=== PATIENT | female | born 1970 | race Caucasian/White ===

== ENCOUNTER 2020-09-18 22:18 | Inpatient (IN) | payer OTHER, SELFPAY ==
[~2020-09-18 22:18] MED LIST: Iopamidol 370 76% 100 ML VIAL ONE
--- NOTE | 2020-09-18 22:52 | RAD ---
Chest AP view INDICATION: Chest pain COMPARISON: None FINDINGS: Lungs: There is airspace opacity in the region of the left lower lobe suspicious for pneumonia. Righ t lung is clear. Cardiac silhouette: The cardiomediastinal silhouette appears within normal limits. Pulmonary vasculature: Normal Pleural spaces: No pleural effusion or pneumothorax is demonstrated. Upper abdomen: No abnormality seen. Osseous structures: No acute osseous abnormality. Additional findings: Numerous surgical clips within the upper abdomen. IMPRESSION: Left lower lobe pneumonia. Recommend radiographic follow-up to resolution.
[2020-09-18 23:27] LABS: ALT (SGPT) 8 U/L (8-55); AST (SGOT) 16 U/L (5-34); Albumin 4.1 g/dL (3.5-5.0); Alkaline Phosphatase 99 U/L (40-110); Anion Gap 14 mmol/L (10-20); BUN (Urea Nitrogen) 4 mg/dL (7.0-18.7); Bilirubin, Total 0.6 mg/dL (0.2-1.2); CK (CPK) 76 U/L (29-168); Calc. Creatinine Clearance 0 mL/min (70-130); Calcium 9.2 mg/dL (7.8-10.44); Carbon Dioxide 24 mmol/L (22-29); Chloride 103 mmol/L (98-107); Estimated GFR-MDRD 86; Globulin 3.2 g/dL (2.4-3.5); Glucose 106 mg/dL (70-105); Lipase 41 U/L (8-78); Potassium 3.9 mmol/L (3.5-5.1); Protein, Total 7.3 g/dL (6.0-8.3); Sodium 137 mmol/L (136-145)
[2020-09-18 23:28] LABS: #Monocytes 0.7 thou/uL (0.11-0.59); #Neutrophils 4.8 thou/uL (1.40-6.50); %Basophils 0.4 % (0.0-1.0); %Eosinophils 0.3 % (0.0-10.0); %Lymphocytes 15.5 % (21.0-51.0); %Monocytes 10.6 % (0.0-10.0); %Neutrophils 73.2 % (42.0-75.0); Hemoglobin 8.1 g/dL (12.0-16.0); Mean Corpuscular HGB CONC 28.7 g/dL (32.0-36.0); Mean Corpuscular Hemoglobin 19.5 pg (27.0-31.0); Mean Corpuscular Volume 67.9 fL (78.0-98.0); Mean Platelet Volume 8.5 fL (7.4-10.4); Platelet Count 385 thou/uL (130-400); Red Blood Cell (RBC) Count 4.15 mill/uL (4.20-5.40); White Blood Cell (WBC) Count 6.5 thou/uL (4.8-10.8)
[2020-09-18 23:29] LABS: Hypochromia SLIGHT = 6-15 cells (100X) (0-5/hpf); MDiff Complete? YES; Microcytosis SLIGHT = 6-15 cells (100X) (0-5/hpf); Platelet Morphology Comment Appears Adequate
[2020-09-19] MEDS ORDERED: Enoxaparin Sodium 100 MG/ML SYRINGE ONE (00:23)
[2020-09-19] MEDS ORDERED: Enoxaparin Sodium 80 MG/0.8 ML SYRINGE ONE (00:23)
--- NOTE | 2020-09-19 00:32 | PDOC.FPRHP ---
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 Also complains of epigastric pain. Pain worsens with inspiration and laying on left side. Pain rated a 7/10, unchanged since onset. Took gas pill without improvement. Reports intermittent ankle edema associated with menstruation x 2 months but denies headache, lightheadedness, vision changes, chest pain, palpitations, SOB, and nausea. No history of DVTs or PEs in the past. Father has history of PE after knee surgery. Denies hx of smoking, recent travel, recent surgery, sedimentary lifestyle, OCPs and hx cancer. Most recent mammogram and pap smear within past 4 hours. Pap smear + HPV with colposcopy, no recent follow up. LMP 1 week ago. ED Course: Oxygen saturation > 95% in the ED. Vitals stable. EKG showed no ST segment changes. CTA showed bilateral pulmonary embolism, per verbal radiology report. Official read pending. 1mg/kg therapeutic lovenox administered. - Allergies/Adverse Reactions Allergies Allergy/AdvReac Type Severity Reaction Status Date / Time No Known Drug Allergies Allergy Unverified 09/19/20 01:08 - History PMHx: Post- ecclampsia, anemia 2/2 gastric bypass, ADD, palpitations, complex migraines PSHx: Gastric bypass, cholecystectomy FHx: Mother (d/c'ed in late 40s) - [place], familial hypertriglyceridemia. Father - PE s/p knee surgery Social: Never smoker. Drinks socially. No history of drug use. - Review of Systems General: denies: fever/chills, night sweats Eyes: denies: eye pain, vision changes ENT: denies: nasal congestion, rhinorrhea Respiratory: denies: cough, shortness of breath Cardiovascular: reports: chest pain (left sided). denies: palpitation, edema Gastrointestinal: reports: abdominal pain (epigastric pain). denies: nausea Genitourinary: denies: dysuria, polyuria Skin: denies: rashes, jaundice Musculoskeletal: denies: pain, swelling Neurological: denies: numbness, weakness Psychological: denies: anxiety, depression - Vital signs BP: [144/80] HR: [87] RR: [18] Tmax: [98F] Pox: [96]% on [RA] Wt: [77.08kg] - Physical Exam Constitutional: NAD, awake, alert and oriented HEENT: normocephalic and atraumatic, no scleral icterus, MMM Neck: FROM, trachea midline Chest: no lesions -Chest: Left sided chest tenderness to palpation Heart: RRR, normal S1/S2, pulses present, no edema Lungs: CTAB, no respiratory distress, good air movement Abdomen: soft, non-tender, bowel sounds present Musculoskeletal: normal structure, ROM grossly normal Neurological: no focal deficit, normal sensation Skin: no rash/lesions, no jaundice Heme/Lymphatic: no unusual bruising or bleeding Psychiatric: normal mood and affect FMR H&P: Results - Labs Result Diagrams: 09/18/20 22:50 09/18/20 22:50 Lab results: WBC 6.5 thou/uL (4.8-10.8) 09/18/20 22:50 Hgb 8.1 g/dL (12.0-16.0) L 09/18/20 22:50 Hct 28.2 % (36.0-47.0) L 09/18/20 22:50 MCV 67.9 fL (78.0-98.0) L 09/18/20 22:50 Plt Count 385 thou/uL (130-400) 09/18/20 22:50 Neutrophils % 73.2 % (42.0-75.0) 09/18/20 22:50 Sodium 137 mmol/L (136-145) 09/18/20 22:50 Potassium 3.9 mmol/L (3.5-5.1) 09/18/20 22:50 Chloride 103 mmol/L (98-107) 09/18/20 22:50 Carbon Dioxide 24 mmol/L (22-29) 09/18/20 22:50 BUN 4 mg/dL (7.0-18.7) L 09/18/20 22:50 Creatinine 0.72 mg/dL (0.6-1.1) 09/18/20 22:50 Glucose 106 mg/dL (70-105) H 09/18/20 22:50 Calcium 9.2 mg/dL (7.8-10.44) 09/18/20 22:50 Total Bilirubin 0.6 mg/dL (0.2-1.2) 09/18/20 22:50 AST 16 U/L (5-34) 09/18/20 22:50 ALT 8 U/L (8-55) 09/18/20 22:50 Alkaline Phosphatase 99 U/L (40-110) 09/18/20 22:50 Creatine Kinase 76 U/L (29-168) 09/18/20 22:50 Serum Total Protein 7.3 g/dL (6.0-8.3) 09/18/20 22:50 Albumin 4.1 g/dL (3.5-5.0) 09/18/20 22:50 Lipase 41 U/L (8-78) 09/18/20 22:50 - EKG Interpretation EKG: NSR at 83, no ST segment changes - Radiology Interpretation Chest x-ray Status: report reviewed by me Additional comment: Opacity concerning for LLL pneumonia FMR H&P: A/P - Plan Bilateral pulmonary embolism Per verbal radiology report, CTA Chest shows bilateral PE. official read pending. Patient received therapeutic lovenox in ED. No cause identified for PE. Vitals stable. -Admit to tele inpatient -1 mg/kg lovenox BID -Bilateral LE doppler - test -Trend trop x 3. Initial < 0.10. -Hypercoagulability panel not indicated given lack of familial or personal history of DVTs, age -CM for coordination of care given need for continued anti-coagulation in setting of no insurance -F/u outpatient with cancer screenings Microcytic anemia 2/2 gastric bypass Hgb 8.1, MCV 67. Previously took iron supplementation but stopped 2 years ago. -Iron studies in am Complex migraines ADD -Aware PCP: [facility] in [place] Code: FULL DVT ppx: Therapeutic lovenox Dispo: Admit to tele inpatient, expected LOS 24-48 hours FMR H&P: Upper Level - Plan Date/Time: 09/19/20 0030 Rachel Pollock, have evaluated this patient and agree with findings/plan as outlined by recording studio intern resident. Pertinent changes/additions are listed here. 50 yo F with no significant PMH is admitted for PE found in the ED. She reports a one day history of worsening L rib, shoulder, neck pain. Pain is worse with inspiration and palpation. No cough, SOB, fever, chills. Last pap smear about 4 years ago, was HPV positive, had a colpo, she thinks this was normal but was unable to have scheduled follow up due to pandemic. Normal mammogram within past 4 years. PE: Gen: NAD HEENT: Moist MM, no LAD Heart: RRR, no murmurs or extra sounds. Distal pulses 2+ Lungs: CTAB, no wheezing. No increased work of breathing Abd: soft, nontender, BS+, no masses or hernias Ext: no cyanosis or edema Skin: no rashes Psych: AOx3 CTA read pending, per report bilateral PE Pulmonary Embolus - VSS, continue to monitor on telemetry - Therapeutic lovenox in ED, continue for now. Transition to DOAC prior to discharge would be ideal, however she is uninsured. Consult CM for medication assistance - No identifiable cause. No known familial history, no trauma, recent surgery or immobilization. She is not obese, nonsmoker. Not on hormonal medication. No hx recurrent miscarriage. - pending BLE dopplers - Recommend outpatient follow up for updated cancer screenings, will be more difficult since uninsured. - No further testing or hypercoagulable workup is indicated at this time due to age >45, lack of family history , and this being first occurrence PCP: Lindsay Attending: Dispo: admit to telemetry, inpatient
[2020-09-19] MEDS ORDERED: Ondansetron PF 4 MG/2 ML Vial IVP PRN (00:59)
[2020-09-19] MEDS ORDERED: Ondansetron ODT 4 MG TAB PO PRN (00:59)
[2020-09-19 01:50] VITALS: BMI 28.3
[2020-09-19 01:50] LABS: #Lymphocytes 1.3 thou/uL (1.20-3.40); #Monocytes 0.8 thou/uL (0.11-0.59); #Neutrophils 5.1 thou/uL (1.40-6.50); %Basophils 0.1 % (0.0-1.0); %Eosinophils 0.2 % (0.0-10.0); %Lymphocytes 17.8 % (21.0-51.0); %Monocytes 10.7 % (0.0-10.0); %Neutrophils 71.2 % (42.0-75.0); Hemoglobin 7.5 g/dL (12.0-16.0); Mean Corpuscular HGB CONC 30.2 g/dL (32.0-36.0); Mean Corpuscular Hemoglobin 20.2 pg (27.0-31.0); Mean Corpuscular Volume 66.9 fL (78.0-98.0); Platelet Count 338 thou/uL (130-400); RBC Distribution Width 15.9 % (11.5-14.5); White Blood Cell (WBC) Count 7.1 thou/uL (4.8-10.8)
[2020-09-19 02:42] LABS: Troponin I Less than 0.010 ng/mL (< 0.028)
[2020-09-19 02:54] LABS: Anion Gap 16 mmol/L (10-20); BUN (Urea Nitrogen) 5 mg/dL (7.0-18.7); Calc. Creatinine Clearance 121 mL/min (70-130); Calcium 9.2 mg/dL (7.8-10.44); Carbon Dioxide 20 mmol/L (22-29); Chloride 103 mmol/L (98-107); Estimated GFR-MDRD Greater than 90; Glucose 100 mg/dL (70-105); Iron 15 ug/dL (50-170); Iron Binding Capacity, Total 425 mcg/dL (265-497); Potassium 3.7 mmol/L (3.5-5.1); Sodium 135 mmol/L (136-145)
[2020-09-19 04:39] LABS: Troponin I Less than 0.010 ng/mL (< 0.028)
--- NOTE | 2020-09-19 07:12 | CT ---
CTA OF THORAX UTILIZING IV CONTRAST WITH PE PROTOCOL AND 3D REFORMATTED IMAGING: Date: 09/18/2020 HISTORY: Left sided chest pain COMPARISON: Prior chest radiograph dated 09/18/2020. FINDINGS: There are areas of occlusive thrombi seen within the left lower lobar pulmonary artery with occlusive thrombus seen within segmental branches of the anterolateral, posterolateral, and posterior medial l eft lower lobe. There is prominent air space opacity in the left lower lobe suspicious for pulmonary hemorrhage and infarct. There is a reactive small left pleural effusion. There is a nonocclusive pulm onary embolus seen at the bifurcation point of the right lower lobe lobar pulmonary artery on image 5 7 of series 2 extending into the segmental branches of the posteromedial and anterolateral right lowe r lobe. No lymphadenopathy is evident. Heart and great vessels of the neck origins are within normal limits. Visualized upper abdomen reveals postsurgical change of a gastric bypass and cholecystectomy. No definite acute osseous abnormality is evident. IMPRESSION: 1. Occlusive thrombus involving segmental pulmonary arterial branches of the left lower lobe with pr ominent air space opacity in the left lower lobe suspicious for pulmonary infarction and hemorrhage. There is reactive small left pleural effusion. 2. Nonocclusive pulmonary embolus within the right lower lobe. Findings called to Dr. Cosby at 0030 hours on 09/19/2020. CODE CR. POS: BH
--- NOTE | 2020-09-19 09:23 | ULT ---
BILATERAL LOWER EXTREMITY VENOUS ULTRASOUND WITH DOPPLER: HISTORY: The patient does have bilateral pulmonary artery emboli. COMPARISON: None. TECHNIQUE: Fu scale, color flow, Doppler imaging, and spectral waveform analysis of the left and right lower e xtremity system. FINDINGS: Bilaterally, there is compressibility, presence of flow, and augmentation of the common femoral vein, femoral vein, and popliteal vein. There is flow in the greater saphenous vein, profunda femoral vei n, and posterior tibial vein. IMPRESSION: No evidence of thrombus in the left or right lower extremity deep venous system. POS: OFF
[2020-09-19] MEDS ORDERED: Ibuprofen 100 MG/5 ML UDCUP PO PRN (09:36)
[2020-09-19 11:19] LABS: SARS-CoV-2 MS2 Positive; SARS-CoV-2 N Gene Negative; SARS-CoV-2 S Gene Negative; SARS-CoV-2 by NAA Not Detected (NotDetected); SARS-CoV-2 orf1ab Negative
[2020-09-19] MEDS: Enoxaparin Sodium 80 MG/0.8 ML SYRINGE SC SCH ×2 (11:33→23:30)
[2020-09-19] MEDS: Acetaminophen 325 MG TAB PO PRN (20:26)
[2020-09-19] MEDS ORDERED: FLU VACC QS2020-21(6MOS UP)/PF 60 MCG/0.5 ML SYRINGE IM ONE (21:00)
[2020-09-19] MEDS ORDERED: Prevnar 13-Val Conj/PF 0.5 ML SYRINGE IM ONE (21:00)
[2020-09-20 04:22] LABS: #Lymphocytes 1.7 thou/uL (1.20-3.40); #Neutrophils 5.9 thou/uL (1.40-6.50); %Basophils 0.1 % (0.0-1.0); %Eosinophils 0.5 % (0.0-10.0); %Lymphocytes 20.1 % (21.0-51.0); %Monocytes 11.5 % (0.0-10.0); %Neutrophils 67.8 % (42.0-75.0); Mean Corpuscular HGB CONC 29.5 g/dL (32.0-36.0); Mean Corpuscular Volume 67.9 fL (78.0-98.0); Mean Platelet Volume 9.2 fL (7.4-10.4); Platelet Count 362 thou/uL (130-400); RBC Distribution Width 16.2 % (11.5-14.5); White Blood Cell (WBC) Count 8.6 thou/uL (4.8-10.8)
[2020-09-20 04:38] LABS: Anion Gap 13 mmol/L (10-20); BUN (Urea Nitrogen) 7 mg/dL (7.0-18.7); Calc. Creatinine Clearance 124 mL/min (70-130); Calcium 9.3 mg/dL (7.8-10.44); Carbon Dioxide 24 mmol/L (22-29); Chloride 104 mmol/L (98-107); Estimated GFR-MDRD Greater than 90; Glucose 94 mg/dL (70-105); Potassium 3.5 mmol/L (3.5-5.1); Sodium 137 mmol/L (136-145)
--- NOTE | 2020-09-20 06:10 | PDOC.FM ---
- Subjective Subjective: Mrs. Prabhakar is doing well this morning and has no complaints. She states her CP has improved and is now a 3/10. It is not constant like it was initially, and she really only notices it on deep inspiration. She denies SOB or any new sxs. I discussed the risk of frequent Ibuprofen use in pts with a hx of bypass, which she had not been aware of. She has agreed to use Ibuprofen very judiciously. We also talked about how it's possible for cancer to be the cause of otherwise unexplained PEs and how she is at the age where we would recommend mammography and colonoscopy anyway, so we discussed the importance of her getting those screenings. I provided her with our clinic number and information on how to ask about the CPRIT program and she is agreeable to following through with this. She also mentioned she had COVID in early May and was asking if this could be the cause of her PEs. Lastly, we discussed needing to send her home on anticoagulation. She is uninsured but states finances are not an issue and she will contact her local pharmacy to see how much 3 months' worth of Eliquis would cost. CM is also looking into getting her a free month on discharge. - Objective Vital Signs & Weight: Vital Signs (12 hours) Temp Pulse Resp BP Pulse Ox 09/20/20 04:00 98.0 F 75 17 140/83 99 09/19/20 23:31 98.1 F 82 17 136/73 97 09/19/20 20:30 99 09/19/20 20:20 99.1 F 98 18 134/73 99 Weight Weight 72.121 kg I&O: 09/18/20 09/19/20 09/20/20 06:59 06:59 06:59 Intake Total 240 870 Output Total 700 Balance 240 170 Result Diagrams: 09/20/20 03:50 09/20/20 03:50 Phys Exam - Physical Examination Constitutional: NAD Alert, awake, sitting up in bed, talking animatedly Neck: supple, full ROM Respiratory: no wheezing, no rales, clear to auscultation bilateral Cardiovascular: RRR, no significant murmur Neurological: non-focal, moves all 4 limbs Psychiatric: normal affect, A&O x 3 Skin: no rash Dx/Plan - Plan Plan: Bilateral pulmonary embolism - CTA Chest shows bilateral PE - Bilateral LE doppler neg - Hypercoagulability panel not indicated given lack of familial or personal history of DVTs, age - Patient has received therapeutic lovenox - CM for coordination of care given need for continued anti-coagulation in setting of no insurance - F/u outpatient with cancer screenings Microcytic 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 I have recommended she restart them and she is agreeable. Complex migraines ADD -Aware PCP: [facility] in [place] Code: FULL DVT ppx: Therapeutic lovenox Dispo: Admit to tele inpatient, discharge pending coordination of outpt anticoag, will likely go today.
[2020-09-20] MEDS ORDERED: Ferrous Sulfate 325 MG TAB PO SCH (08:00)
[2020-09-20] MEDS ORDERED: Prevnar 13-Val Conj/PF 0.5 ML SYRINGE IM ONE (09:00)
[2020-09-20] MEDS ORDERED: FLU VACC QS2020-21(6MOS UP)/PF 60 MCG/0.5 ML SYRINGE IM ONE (09:00)
[2020-09-20] MEDS: Acetaminophen 325 MG TAB PO PRN (10:52)
[2020-09-20] MEDS: Enoxaparin Sodium 80 MG/0.8 ML SYRINGE SC SCH (10:52)
[2020-09-20 16:57] VITALS: BP 126/64; TEMP 98.9
--- NOTE | 2020-09-21 02:54 | DIS ---
DATE OF ADMISSION: 09/19/2020 DATE OF DISCHARGE: 09/20/2020 RESIDENT: Tona Cuellar MD. ADMITTING/ATTENDING: Dr. Peter Richardson. DISCHARGE ATTENDING: Dr. Robert Gallo. CONSULTS: None. PROCEDURES: None. PRIMARY DIAGNOSIS: 1. Bilateral pulmonary embolism. 2. Microcytic anemia secondary to gastric bypass. SECONDARY DIAGNOSES: 1. Complex migraines. 2. Attention deficit disorder. DISCHARGE MEDICATIONS: New medications: 1. Eliquis 5 mg p.o. b.i.d. 2. Ferrous sulfate 325 mg p.o. q.a.m. WM. Continued medications: 1. Vyvanse 70 mg p.o. q.a.m. 2. Adderall extended release 30 mg p.o. daily. Discontinued medications: None. HISTORY OF PRESENT ILLNESS/HOSPITAL COURSE: This is a 50-year-old female, who presented to the ED with complaints of left-sided chest pain radiating to the left shoulder and neck for 2 days, as well as epigastric pain. The pain worsened with inspiration and lying on her left side and was not resolved by taking a gas pill. She has no history of smoking, recent travel, recent surgery, sedentary lifestyle, OCP use, history of cancer. CTA of the chest showed bilateral PE, so she received therapeutic Lovenox. Bilateral lower extremity Dopplers were negative. A hypercoagulability panel was not indicated given lack of familial or personal history of DVTs as well as age. Case Management was consulted to coordinate care for continued anticoagulation in the outpatient setting, as well as for outpatient cancer screenings given both the patient's age and an unclear cause for the pulmonary emboli. Later, the patient mentioned that she had recently had COVID in early May, so it is possible this is the cause of her emboli. The Case Management provided her with a free 1-month dose of Eliquis and the patient was instructed on how to obtain the next 2 months' worth of Eliquis. The patient also has a chronic microcytic anemia since a gastric bypass. She was encouraged to take iron supplementation as well as vitamin C supplementation and was agreeable to this. DISPOSITION: Stable. DISCHARGE INSTRUCTIONS: Location: Home. Diet: Heart healthy. Activity: As tolerated. Followup: The patient is recommended to follow up with her PCP within 7 to 10 days as well as for monitoring of her hemoglobin, status post iron supplementation. The patient is recommended to obtain age-appropriate cancer screening such as Pap smear, mammogram, colonoscopy. She was provided with the phone number for the [facility] with instructions on how to sign up for the CPRIT Program, through which these screenings can be obtained for free given her lack of insurance. Job ID: [id number] MTDD
--- NOTE | 2020-09-22 02:28 | PQF ---
CLINICAL DOCUMENTATION CLARIFICATION FORM: Dear : Robert Gallo Date / Time: 09/22/2020 02:27 Please exercise your independent, professional judgment in responding to the clarification form. Clinical indicators are provided on the bottom of this form for your review Can you please clarify the diagnosis being treated? Please check appropriate box(es): [ ] Associated Diagnosis: Pneumonia [ ] Not clinically significant radiological findings [ ] Other diagnosis [ ] Unable to determine Physician Signature: Date/Time: For continuity of documentation, please document condition throughout progress notes and discharge summary. Thank You. To be completed by CDI/Coding staff for physician review: Present Clinical Indicators - Signs / Symptoms / Labs Results and Location in Medical Record [x] Chest Xray: left lower love pneumonia Collected 09/18 [x] Lungs: there is airspace opacity in the region of the left lower lobe suspicious for pneumonia Collected 09/18 [x] CC: chest pain HP 09/19 [x] WBC: 09/18=6.5 09/19=7.1 09/20=8.6 Collected 09/18 Present Risk Factors Results and Location in Medical Record [x] PE HP 09/19 [x] 50 years old female HP 09/19 [x] History of Covid infection PN 09/20 Present Treatments Results and Location in Medical Record [x] Chest Xray Collected 09/18 [x] Laboratory Monitoring Collected 09/18 CDS/Candy Dipper Signature:Andrea Donahue Phone #: ext [phone] Date/Time: 09/22/2020 02:27 This is a permanent part of the Medical Record [facility]
== END 2020-09-20 18:30 | disposition home or self-care (01) | DRG 176 ==
LOC: ERS 22:18 → 2NO 09-19 00:39
PROVIDERS: ADMIT Emergency Medicine; ATTEND Emergency Medicine
DX: I26.99 Other pulmonary embolism without acute cor pulmonale (principal); F98.8 Other specified behavioral and emotional disorders with onset usually occurring in childhood and adolescence; D50.9 Iron deficiency anemia, unspecified; G43.809 Other migraine, not intractable, without status migrainosus; Z20.828 Contact with and (suspected) exposure to other viral communicable diseases; Z90.49 Acquired absence of other specified parts of digestive tract; Z79.899 Other long term (current) drug therapy
CPT/HCPCS: 36415; 71045; 71275; 80048; 80053; 82550; 82728; 83540; 83550; 83690; 84443; 84466; 84484; 85025; 87635; 93005; 93970; 94760; 96372; J1650; Q9967; U0003